=== PATIENT | female | born 1950 | race African-American/Black ===

== ENCOUNTER 2016-05-15 07:25 | Day surgery (SDC) | payer OTHER ==
--- NOTE | ~2016-05-15 | EGD ---
EGD REPORT [facility] [address] [place] [address] [address] NAME: ERLINDA MERCADO : [birth year] STATUS : REG [facility]#: [id number] AGE: 66 ADM/REG DATE : 05/15/16 MR#: [id number] REPORT SERV DATE: 05/15/16 DICTATED BY: IVONE VAUGHAN DATE: 05/15/16 REPORT STATUS : Draft TRANSCRIBED BY: [facility] DATE: 05/15/16 Endoscopy Center Patient Name: Erlinda Mercado Date of : 1950 Attending MD: IVONE VAUGHAN MD Procedure Date No Time: 05/15/2016 Procedure: Colonoscopy Indications: High risk colon cancer surveillance: Personal history of non-advanced adenoma. Patient Profile: Informed consent was obtained from the patient by me prior to the procedure. Risks, benefits, and alternatives were discussed including the risk of bleeding, perforation, infection, reaction to medicine, missed lesion, and cardiopulmonary complications. Referring MD: Laine Fagan Medicines: Monitored Anesthesia Care Complications: No immediate complications. Procedure: Pre-Anesthesia Assessment: - ASA Grade Assessment: III - A patient with severe systemic disease. After I obtained informed consent, the scope was passed under direct vision. Throughout the procedure, the patient's blood pressure, pulse, and oxygen saturations were monitored continuously. The PCF [id number] was introduced through the anus and advanced to the cecum, identified by appendiceal orifice and ileocecal valve. The colonoscope was slowly withdrawn with careful examination all mucosal surfaces including specific attention around flexures and tip deflection behind folds; retroflexion performed in rectum. The colonoscopy was performed without difficulty. The patient tolerated the procedure well. The quality of the bowel preparation was adequate. The ileocecal valve, appendiceal orifice and rectum were photographed. Findings: A sessile polyp was found in the ascending colon. The polyp was 10 mm in size. The polyp was removed with a cold snare. Resection and retrieval were complete. A sessile polyp was found in the transverse colon. The polyp was 7 mm in size. The polyp was removed with a cold snare. Resection and retrieval were complete. A sessile polyp was found in the rectum. The polyp was 5 mm in size. The polyp was removed with a cold biopsy forceps. Resection and retrieval were complete. EGD REPORT [address] [id number] [place]. [address] NAME: ERLINDA MERCADO : [birth year] STATUS : REG [facility]#: [id number] AGE: 66 ADM/REG DATE : 05/15/16 MR#: [id number] REPORT SERV DATE: 05/15/16 DICTATED BY: IVONE VAUGHAN DATE: 05/15/16 REPORT STATUS : Draft TRANSCRIBED BY: [facility] DATE: 05/15/16 A single medium-mouthed diverticulum was found in the distal transverse colon. Impression: - One 10 mm polyp in the ascending colon. Resected and retrieved. - One 7 mm polyp in the transverse colon. Resected and retrieved. - One 5 mm polyp in the rectum. Resected and retrieved. - Diverticulosis in the distal transverse colon. Recommendation: - Patient has a contact number available for emergencies. The signs and symptoms of potential delayed complications were discussed with the patient. Return to normal activities tomorrow. Written discharge instructions were provided to the patient. - Regular diet. - Continue present medications. - Await pathology results. - Repeat colonoscopy for surveillance based on pathology results. Procedure Code(s): --- Professional --- 86245, Colonoscopy, flexible, proximal to splenic flexure; with removal of tumor(s), polyp(s), or other lesion(s) by snare technique 01426, 59, Colonoscopy, flexible, proximal to splenic flexure; with biopsy, single or multiple Diagnosis Code(s): --- Professional --- K62.1, Rectal polyp D12.3, Benign neoplasm of transverse colon D12.2, Benign neoplasm of ascending colon K57.30, Diverticulosis of large intestine without perforation or abscess without bleeding Z86.010, Personal history of colonic polyps CPT copyright 2013 [employer]. All rights reserved. The codes documented in this report are preliminary and upon medical biller/coder review may be revised to meet current compliance requirements. IVONE VAUGHAN MD 05/15/2016 9:31 AM This report has been signed electronically. Number of Addenda: 0 EGD REPORT [facility] [address] [address] NAME: ERLINDA MERCADO : [birth year] STATUS : REG [facility] PAT#: [id number] AGE: 66 ADM/REG DATE : 05/15/16 MR#: [id number] REPORT SERV DATE: 05/15/16 DICTATED BY: IVONE VAUGHAN DATE: 05/15/16 REPORT STATUS : Draft TRANSCRIBED BY: [employer] DATE: 05/15/16 Note Initiated On: 05/15/2016 8:56 AM Scope Withdrawal Time 0 hours 11 minutes 45 seconds [address] [id number]
[~2016-05-15 07:25] MED LIST: ABILIFY5 PO; AMITIZA24 PO; ASAB PO; BUSPAR5 PO; GLUCOPHAGE1000 MG PO; LANTUS SC; LOPRESS HC100 MG/25 PO; LOTE40 PO; METHATAB5B PO; NORCO1 TA1 PO; NORV5 PO; NOVOLOG SC; NOVOLOGMIX SC; PLAVIX PO; PRILOSEC40 MG PO; PROTONIX PO; REMERON30 MG PO; SUCR PO; TRULICITY0.75 MG/0. SQ; ZANAFLEX 4 MG TA4 MG PO; ZOCOR40 PO; ZOFRANODT8 PO
== END 2016-05-15 23:59 | disposition home or self-care (01) ==
LOC: DMU 07:25
PROVIDERS: Internal Medicine Gastroenterology
PROC: 0DBL8ZZ Excision of Transverse Colon, Via Natural or Artificial Opening Endoscopic (ICD-10-PCS; 2016-05-15)
PROC: 0DBP8ZZ Excision of Rectum, Via Natural or Artificial Opening Endoscopic (ICD-10-PCS; principal; 2016-05-15 08:30)
PROC: 0DBK8ZZ Excision of Ascending Colon, Via Natural or Artificial Opening Endoscopic (ICD-10-PCS; 2016-05-15 08:30)
DX: Z12.11 Encounter for screening for malignant neoplasm of colon (principal); D12.2 Benign neoplasm of ascending colon; K62.1 Rectal polyp; K57.30 Diverticulosis of large intestine without perforation or abscess without bleeding; K44.9 Diaphragmatic hernia without obstruction or gangrene; I10 Essential (primary) hypertension; I25.10 Atherosclerotic heart disease of native coronary artery without angina pectoris; I25.2 Old myocardial infarction; E11.9 Type 2 diabetes mellitus without complications; E78.00 Pure hypercholesterolemia, unspecified; F17.210 Nicotine dependence, cigarettes, uncomplicated; G89.4 Chronic pain syndrome; G47.33 Obstructive sleep apnea (adult) (pediatric); J44.9 Chronic obstructive pulmonary disease, unspecified; M19.90 Unspecified osteoarthritis, unspecified site; N28.1 Cyst of kidney, acquired; Z86.010 Personal history of colon polyps; Z88.0 Allergy status to penicillin; Z88.8 Allergy status to other drugs, medicaments and biological substances; Z79.4 Long term (current) use of insulin; Z79.84 Long term (current) use of oral hypoglycemic drugs; Z79.82 Long term (current) use of aspirin; Z79.891 Long term (current) use of opiate analgesic; Z79.899 Other long term (current) drug therapy; Z96.1 Presence of intraocular lens; Z98.41 Cataract extraction status, right eye; Z98.42 Cataract extraction status, left eye; Z90.710 Acquired absence of both cervix and uterus; Z98.890 Other specified postprocedural states
CPT/HCPCS: 82962; 88305